=== PATIENT | male | born 1940 | race Caucasian/White ===

== ENCOUNTER 2017-04-22 07:00 | Inpatient (IN) | payer MEDICARE ==
[~2017-04-22] VITALS: Ht 165 cm; Wt 79.0 kg
[2017-04-23 06:17] LABS: HCT 27.9 % (42.0-52.0); HGB 9.2 g/dl (13.2-18.0); MCH 31.5 pg (25.0-31.0); MCV 95.5 fL (78.0-100.0); MPV 9.1 fL (6.0-9.5); RBC 2.92 M/uL (4.70-6.00); RDW 13.7 % (11.5-14.0); WBC 20.4 K/uL (4.0-10.5)
[2017-04-23 06:47] LABS: CREATININE 0.9 mg/dL (0.7-1.2); POTASSIUM 4.6 mmol/L (3.5-5.1)
[2017-04-24 05:54] LABS: HCT 22.3 % (42.0-52.0); HGB 7.4 g/dl (13.2-18.0); MCH 31.9 pg (25.0-31.0); MCHC 33.2 g/dL (32.0-36.0); MCV 96.1 fL (78.0-100.0); MPV 9.5 fL (6.0-9.5); RBC 2.32 M/uL (4.70-6.00); RDW 13.6 % (11.5-14.0); WBC 15.7 K/uL (4.0-10.5)
[2017-04-24 06:49] LABS: CREATININE 0.8 mg/dL (0.7-1.2); POTASSIUM 4.8 mmol/L (3.5-5.1)
[2017-04-24 09:17] LABS: BASOPHIL 0.1 % (0-2); EOSINOPHIL 1.5 % (0-7); HCT 21.1 % (42.0-52.0); LYMPHOCYTE 7.9 % (15-48); MCHC 33.2 g/dL (32.0-36.0); MCV 96.3 fL (78.0-100.0); MONOCYTE 6.3 % (0-12); MPV 8.4 fL (6.0-9.5); NEUTROPHIL 84.2 % (41-80); PLT 156 K/uL (150-400); RBC 2.19 M/uL (4.70-6.00); RDW 13.6 % (11.5-14.0); WBC 14.3 K/uL (4.0-10.5)
[2017-04-25 06:22] LABS: BASOPHIL 0.2 % (0-2); EOSINOPHIL 1.8 % (0-7); HCT 24.2 % (42.0-52.0); HGB 8.1 g/dl (13.2-18.0); LYMPHOCYTE 8.8 % (15-48); MCHC 33.5 g/dL (32.0-36.0); MCV 95.7 fL (78.0-100.0); MONOCYTE 9.9 % (0-12); MPV 8.8 fL (6.0-9.5); NEUTROPHIL 79.3 % (41-80); PLT 181 K/uL (150-400); RBC 2.53 M/uL (4.70-6.00); RDW 14.7 % (11.5-14.0); WBC 14.9 K/uL (4.0-10.5)
[2017-04-25] MEDS ORDERED: ASPIRIN325 MG PO (11:12)
[2017-04-25] MEDS ORDERED: MEN'S MULTI-VI1 EACH PO (11:13)
[2017-04-25] MEDS ORDERED: PREDNISONE 5MG T5 MG PO (11:13)
[2017-04-25] MEDS ORDERED: VITAMIN E400 UNI4 PO (11:14)
[2017-04-25] MEDS ORDERED: CALCIUM600 MG PO (11:14)
[2017-04-25] MEDS ORDERED: DHEA50 MG PO (11:14)
[2017-04-25] MEDS ORDERED: GABAPENTIN800 MG PO (11:15)
[2017-04-25] MEDS ORDERED: STOOL SOFTENER100 M1 PO (11:15)
[2017-04-25] MEDS ORDERED: CELEBREX200 MG PO (11:15)
[2017-04-25] MEDS ORDERED: VITAMIN B-121000 MC1 PO (11:16)
[2017-04-25] MEDS ORDERED: GLUCOSAMINE-CH1 EA28 PO (11:16)
[2017-04-25] MEDS ORDERED: MYRBETRIQ25 MG PO (11:16)
[2017-04-25] MEDS ORDERED: PROBIOTIC1 EAC2 PO (11:16)
[2017-04-25] MEDS ORDERED: CLARITIN10 MG PO (11:16)
[2017-04-25] MEDS ORDERED: FLEXERIL10 MG PO (11:17)
[2017-04-25] MEDS ORDERED: ACETAMINOPHEN325 MG PO (11:17)
[2017-04-25] MEDS ORDERED: CARDURA4 MG PO (11:17)
== END 2017-04-25 13:00 | disposition home health service (06) | DRG 483 ==
LOC: FMS 07:00
PROVIDERS: Internal Medicine; ADMIT Legal Medicine
PROC: 0LS30ZZ Reposition Right Upper Arm Tendon, Open Approach (ICD-10-PCS; 2017-04-22)
PROC: 0RRJ00Z Replacement of Right Shoulder Joint with Reverse Ball and Socket Synthetic Substitute, Open Approach (ICD-10-PCS; principal; 2017-04-22 07:00)
PROC: 30233N1 Transfusion of Nonautologous Red Blood Cells into Peripheral Vein, Percutaneous Approach (ICD-10-PCS; 2017-04-24)
DX: M19.011 Primary osteoarthritis, right shoulder (principal); M06.9 Rheumatoid arthritis, unspecified; D62 Acute posthemorrhagic anemia; M75.101 Unspecified rotator cuff tear or rupture of right shoulder, not specified as traumatic; K21.9 Gastro-esophageal reflux disease without esophagitis; Z88.5 Allergy status to narcotic agent; Z88.8 Allergy status to other drugs, medicaments and biological substances; Z79.899 Other long term (current) drug therapy
CPT/HCPCS: 36415; 36430; 73020; 80048; 85025; 86850; 86900; 86901; 86922; 87640; 87641; 87900; 88305; 94010; 94762; 97116; 97162; 97167; 97530; 97530-GP; 97535; C1713; C1776; J0131; J0697; J1170; J1885; J2405; J2704; J2795; J2916; J3010; P9016